=== PATIENT | female | born 1940 | race Caucasian/White ===

== ENCOUNTER 2018-04-03 10:00 | Observation (INO) ==
--- NOTE | 2018-04-03 10:07 | Emergency Department Note ---
Disposition Clinical Impression: Atrial fibrillation Qualifiers: Atrial fibrillation type: unspecified Qualified Code(s): I48.91 - Unspecified atrial fibrillation Disposition: Admitted As Inpatient Condition: Good Referrals: Nahed Berman CNP [Primary Care Provider] - Time of Disposition: 13:20 Chest Pain HPI - General Chief Complaint: ED Chest Pain Stated Complaint: chest pain Time Seen by Provider: 04/03/18 10:05 Source: patient, family Mode of arrival: private vehicle Limitations: no limitations Vital Signs Reviewed: Yes Nursing Notes Reviewed: Yes - History of Present Illness HPI Narrative: Patient is a 78-year-old female without a significant PMH resenting today with history of 4-5 months of chest pain worsening over the last 1-2 days. Patient was seen at [facility] ER yesterday and was told that she has atrial fibrillation and was told to take an aspirin and see a plastic press operator. Patient was not able to get an appointment with cardiology until this coming , and her pain is still present and is happening more frequently. Patient states that the pain is located in the left inframammary area, without radiation, feels like someone is punching her in the chest, happens infrequently, lasts for up to 20 seconds, without any exacerbating or relieving factors. Patient denies associated symptoms including nausea, vomiting, diaphoresis, dizziness, lightheadedness, shortness of breath. Patient denies ever having been a smoker, alcohol, or illegal drugs. Patient states that she takes Premarin, Fosamax, naproxen for knee pain. Severity scale (1-10): 1 - Related Data Home Medications Medication Instructions Recorded Confirmed Alendronate Sodium [Fosamax] 1 mg PO 04/02/18 Estrogens, Conjugated [Premarin] 0.45 mg PO DAILY 04/02/18 04/02/18 Naproxen [Naprosyn] 500 mg PO BID 04/02/18 04/02/18 Previous Rx's Medication Instructions Recorded Rivaroxaban [Xarelto] 20 mg PO DAILY #30 tablet 04/02/18 Allergies Allergy/AdvReac Type Severity Reaction Status Date / Time No Known Allergies Allergy Verified 04/03/18 13:31 All systems ED: reviewed and negative except as stated. Review of Systems: As Per HPI Constitutional: Denies: fever, chills Cardiovascular: Reports: chest pain (left sided, non radiating, 4-5 mos). Denies: dyspnea on exertion Respiratory: Denies: cough, wheezes Gastrointestinal: Denies: abdominal pain, nausea, vomiting, diarrhea, constipation Genitourinary: Denies: urgency, dysuria Neurological: Reports: paresthesias (karen feet from "pre-diabetes" a few years ago). Denies: weakness, numbness Chest Pain PMH - Past Medical History Medical history: Reports: no medical history Psychiatric history: Reports: no psych history - Social History Smoking Status: Never smoker Alcohol use: Reports: none Physical Exam - General Limitations: no limitations General appearance: alert, in no apparent distress - Head Head exam: atraumatic, normocephalic - Eye Eye exam: Present: normal appearance, PERRL, EOMI - ENT ENT exam: normal exam, normal oropharynx, mucous membranes moist - Neck Neck exam: Present: normal inspection, full ROM - Chest Chest inspection: Present: normal inspection, symmetric chest wall rise, tenderness - Respiratory Respiratory exam: Present: normal lung sounds bilaterally. Absent: respiratory distress, wheezes - Cardiovascular Cardiovascular exam: Present: tachycardia, irregular rhythm - Expanded Cardiovascular Exam Peripheral pulses: 2+: radial (R), radial (L), posterior tibialis (R), posterior tibialis (L) - Abdominal Exam Abdominal exam: Present: soft, Non-Tender. Absent: tenderness, distention - Expanded Lower Extremity Exam Lower leg exam: Present: swelling (pt states her legs are always this swollen, it is not worse or better than it normally is) - Back Exam Back exam: Present: normal inspection, full ROM - Neurological Exam Neurological exam: Present: alert, oriented X3 - Psychiatric Psychiatric exam: Present: normal affect, normal mood - Skin Skin exam: Present: warm, dry, intact Course Course Narrative: Patient had a negative workup at [facility] yesterday, although she states that her pain has become more frequent and is worse in severity. We will repeat the workup and she will likely need to be admitted for new onset atrial fibrillation. Vital Signs Temperature 97.7 F 04/03/18 10:02 Pulse Rate 90 04/03/18 10:02 Respiratory Rate 16 04/03/18 10:02 Blood Pressure 150/87 04/03/18 10:02 O2 Sat by Pulse Oximetry 95 04/03/18 10:02 Temperature 97.7 F 04/03/18 10:20 Pulse Rate 89 04/03/18 11:38 Respiratory Rate 18 04/03/18 11:38 Blood Pressure 142/59 04/03/18 11:38 O2 Sat by Pulse Oximetry 98 04/03/18 11:38 Oxygen Delivery Oxygen Delivery Room Air Chest Pain - MDM Narrative Medical decision making narrative: Patient CTA was negative for pulmonary embolism, troponin was below detectable value, chest x-ray was negative for acute process, but given the patient's diagnosis of new onset A. fib along with slight ST depressions in precordial leads, patient will need to come in for further cardiac workup. Patient is in agreement with this plan. Patient was given an Opportunity to ask questions and all of her concerns were addressed. Dr. Thomas, Hospitalist, accepts. Pt remained stable with the exception of variable heart rate between 80s-110s while in the department and did not show signs or symptoms of hemodynamic instability. - Medical Records Medical records reviewed: Yes I reviewed the patient's medical records. - Lab Data Lab results reviewed: Yes I reviewed the patient's lab results. Result diagrams: 04/03/18 10:42 04/03/18 10:42 Lab Results 04/03/18 04/03/18 04/03/18 Range/Units 10:42 10:42 10:42 WBC 6.6 (4.3-11.1) K/mcL RBC 4.76 (3.82-4.97) M/mcL Hgb 14.5 (11.5-15.4) g/dL Hct 43.2 (35.3-44.9) % MCV 90.8 (83.0-100.0) fL MCH 30.5 (28.0-33.3) pg MCHC 33.6 (31.6-35.5) g/dL RDW 13.6 (11.5-14.5) % Plt Count 177 (140-400) K/mcL MPV 10.3 (9.4-12.4) fL Immature Gran % 0.5 (0-4) % Seg Neutrophils % 69.2 % Lymphocytes % 20.8 % Monocytes % 8.3 % Eosinophils % 0.6 % Basophils % 0.6 % Neutrophils # 4.6 (1.6-8.9) K/mcL Lymphocytes # 1.4 (0.6-4.6) K/mcL Monocytes # 0.6 (0.0-1.3) K/mcL Eosinophils # 0.0 (0.0-0.6) K/mcL Basophils # 0.0 (0.0-0.2) K/mcL Sodium 143 (136-145) mEq/L Potassium 4.0 (3.5-5.1) mEq/L Chloride 106 (98-107) mEq/L Carbon Dioxide 30 H (23-29) mEq/L BUN 19 (8-23) mg/dL Creatinine 0.74 (0.60-1.20) mg/dL Est GFR ( Amer) > 60 (> 60) Est GFR (Non-Af Amer) > 60 (> 60) BUN/Creatinine Ratio 26 (6-26) Glucose 102 (70-105) mg/dL Calculated Osmolality 298 (280-300) Calcium 9.9 (8.6-10.3) mg/dL Phosphorus 2.8 (2.7-4.5) mg/dL Magnesium 2.1 (1.6-2.6) mg/dL Total Bilirubin 1.1 H (0.3-1.0) mg/dL AST 20 (13-39) Units/L ALT 18 (7-52) Units/L Alkaline Phosphatase 58 (34-104) Units/L Troponin I < 0.03 (< 0.04) ng/mL Serum Total Protein 6.4 (6.4-8.9) g/dL Albumin 3.9 (3.5-5.7) g/dL Globulin 2.5 (2.4-3.5) g/dL Albumin/Globulin Ratio 1.6 (1.1-2.2) TSH 0.469 (0.340-5.600) mcIU/mL - Radiology Data Radiology results reviewed: Yes I reviewed the patient's radiology results. Chest X-Ray 04/03/18 10:27 IMPRESSION: 1. No acute findings in the chest 2. Pulmonary vascular congestion and mild cardiomegaly. D/ / Julio Shepard MD / Julio Shepard MD Interpreting Provider: Julio Shepard MD - EKG Data EKG attestation: Yes I reviewed and interpreted this EKG. EKG results narrative: Rate 101, Rhythm atrial fibrillation, axis normal. QRS 80, QTC 431. Lead II shows 1mm ST depression not present on comparison study from 04/02/18. Heart Score - Score History: Slightly Suspicious EKG: Non Specific repolarisation Disturbance Age: Greater than 65 Risk Factors: 1-2 risk factors Troponin: Less than normal limit HEART Score Total: 4
[2018-04-03 11:02] LABS: Basophils % 0.6 %; Eosinophils % 0.6 %; Hematocrit 43.2 % (35.3-44.9); Hemoglobin 14.5 g/dL (11.5-15.4); Immature Granulocytes % 0.5 % (0-4); Lymphocytes # 1.4 K/mcL (0.6-4.6); Lymphocytes % 20.8 %; Mean Corpuscular HGB Conc 33.6 g/dL (31.6-35.5); Mean Corpuscular Hemoglobin 30.5 pg (28.0-33.3); Mean Corpuscular Volume 90.8 fL (83.0-100.0); Mean Platelet Volume 10.3 fL (9.4-12.4); Monocytes # 0.6 K/mcL (0.0-1.3); Monocytes % 8.3 %; Neutrophils # 4.6 K/mcL (1.6-8.9); Platelet Count 177 K/mcL (140-400); Red Blood Count 4.76 M/mcL (3.82-4.97); Red Cell Distribution Width 13.6 % (11.5-14.5); Segmented Neutrophils % 69.2 %
[2018-04-03] MEDS ORDERED: Isovue-370 500 ML INFUS..BTL IV ONE (11:11)
[2018-04-03 11:13] LABS: Alanine Aminotransferase 18 Units/L (7-52); Albumin 3.9 g/dL (3.5-5.7); Albumin/Globulin Ratio 1.6 (1.1-2.2); Alkaline Phosphatase 58 Units/L (34-104); Aspartate Amino Transferase 20 Units/L (13-39); BUN/Creatinine Ratio 26 (6-26); Bilirubin,Total 1.1 mg/dL (0.3-1.0); Blood Urea Nitrogen 19 mg/dL (8-23); Calcium 9.9 mg/dL (8.6-10.3); Carbon Dioxide 30 mEq/L (23-29); Chloride 106 mEq/L (98-107); Globulin 2.5 g/dL (2.4-3.5); Glucose 102 mg/dL (70-105); Osmolality,Calculated 298 (280-300); Sodium 143 mEq/L (136-145); Total Protein 6.4 g/dL (6.4-8.9); eGFR For Non-African Americans > 60 (> 60)
[2018-04-03 11:15] LABS: Magnesium 2.1 mg/dL (1.6-2.6); Phosphorous 2.8 mg/dL (2.7-4.5)
[2018-04-03] MEDS ORDERED: Aspirin 325 MG TABLET PO ONE (11:15)
[2018-04-03 11:16] LABS: Troponin I < 0.03 ng/mL (< 0.04)
--- NOTE | 2018-04-03 11:16 | Emergency Department Note ---
Disposition Clinical Impression: Atrial fibrillation Disposition: Admitted As Inpatient Condition: Good General Adult HPI - General Chief complaint: ED Chest Pain Stated complaint: chest pain Time Seen by Provider: 04/03/18 10:05 Source: patient, family Mode of arrival: private vehicle Limitations: no limitations - History of Present Illness Pain Scale: 1 - Related Data Home Medications Medication Instructions Recorded Confirmed Alendronate Sodium [Fosamax] 1 mg PO 04/02/18 Estrogens, Conjugated [Premarin] 0.45 mg PO DAILY 04/02/18 04/02/18 Naproxen [Naprosyn] 500 mg PO BID 04/02/18 04/02/18 Previous Rx's Medication Instructions Recorded Rivaroxaban [Xarelto] 20 mg PO DAILY #30 tablet 04/02/18 Allergies Allergy/AdvReac Type Severity Reaction Status Date / Time No Known Allergies Allergy Verified 04/02/18 10:06 Constitutional: Denies: fever, chills Cardiovascular: Reports: chest pain (left sided, non radiating, 4-5 mos). Denies: dyspnea on exertion Respiratory: Denies: cough, wheezes Gastrointestinal: Denies: abdominal pain, nausea, vomiting, diarrhea, constipation Genitourinary: Denies: urgency, dysuria Neurological: Reports: paresthesias (karen feet from "pre-diabetes" a few years ago). Denies: weakness, numbness Past Medical History - Past Medical History Medical history: Reports: no medical history Psychiatric history: Reports: no psych history - Social History Smoking Status: Never smoker Smokeless Tobacco Status: No Alcohol use: Reports: none Drug use: Reports: none Physical Exam - General Limitations: no limitations General appearance: alert, in no apparent distress Course Vital Signs Temperature 97.7 F 04/03/18 10:02 Pulse Rate 90 04/03/18 10:02 Respiratory Rate 16 04/03/18 10:02 Blood Pressure 150/87 04/03/18 10:02 O2 Sat by Pulse Oximetry 95 04/03/18 10:02 Temperature 97.7 F 04/03/18 10:20 Pulse Rate 89 04/03/18 11:38 Respiratory Rate 18 04/03/18 11:38 Blood Pressure 142/59 04/03/18 11:38 O2 Sat by Pulse Oximetry 98 04/03/18 11:38 Oxygen Delivery Oxygen Delivery Room Air Medical Decision Making - Lab Data Result diagrams: 04/03/18 10:42 04/03/18 10:42 Lab Results 04/03/18 04/03/18 04/03/18 Range/Units 10:42 10:42 10:42 WBC 6.6 (4.3-11.1) K/mcL RBC 4.76 (3.82-4.97) M/mcL Hgb 14.5 (11.5-15.4) g/dL Hct 43.2 (35.3-44.9) % MCV 90.8 (83.0-100.0) fL MCH 30.5 (28.0-33.3) pg MCHC 33.6 (31.6-35.5) g/dL RDW 13.6 (11.5-14.5) % Plt Count 177 (140-400) K/mcL MPV 10.3 (9.4-12.4) fL Immature Gran % 0.5 (0-4) % Seg Neutrophils % 69.2 % Lymphocytes % 20.8 % Monocytes % 8.3 % Eosinophils % 0.6 % Basophils % 0.6 % Neutrophils # 4.6 (1.6-8.9) K/mcL Lymphocytes # 1.4 (0.6-4.6) K/mcL Monocytes # 0.6 (0.0-1.3) K/mcL Eosinophils # 0.0 (0.0-0.6) K/mcL Basophils # 0.0 (0.0-0.2) K/mcL Sodium 143 (136-145) mEq/L Potassium 4.0 (3.5-5.1) mEq/L Chloride 106 (98-107) mEq/L Carbon Dioxide 30 H (23-29) mEq/L BUN 19 (8-23) mg/dL Creatinine 0.74 (0.60-1.20) mg/dL Est GFR ( Amer) > 60 (> 60) Est GFR (Non-Af Amer) > 60 (> 60) BUN/Creatinine Ratio 26 (6-26) Glucose 102 (70-105) mg/dL Calculated Osmolality 298 (280-300) Calcium 9.9 (8.6-10.3) mg/dL Phosphorus 2.8 (2.7-4.5) mg/dL Magnesium 2.1 (1.6-2.6) mg/dL Total Bilirubin 1.1 H (0.3-1.0) mg/dL AST 20 (13-39) Units/L ALT 18 (7-52) Units/L Alkaline Phosphatase 58 (34-104) Units/L Troponin I < 0.03 (< 0.04) ng/mL Serum Total Protein 6.4 (6.4-8.9) g/dL Albumin 3.9 (3.5-5.7) g/dL Globulin 2.5 (2.4-3.5) g/dL Albumin/Globulin Ratio 1.6 (1.1-2.2) TSH 0.469 (0.340-5.600) mcIU/mL Attestation Statement - Attestation Attestation: I examined this patient and my medical decision-making was reviewed with the Resident Physician. I agree with the documented findings, disposition and treatment plan as described except to the extent set forth below. Patient to the emergency department complaining of chest pain. Patient has been having pain in the left lower anterior chest. It worsened over the past couple of days. She has had several episodes of it. She was evaluated at [place] yesterday and found to be in new onset A. fib. She was discharged home with follow-up with cardiology on . She was instructed to take a daily aspirin. She states she got increasing pain last night. She is concerned because her blood cardiology is so far out. Patient describes this pain as sharp and worsening to the touch. Denies rash. Denies fever. Denies cough. Denies any cardiac history. On examination she is very pleasant and well- appearing. Sitting up in bed. Inspection of the area does not reveal any swelling, ecchymosis, or rash. Her lungs are clear. Heart is tachycardia and irregularly irregular. Plan. Patient with new onset A. fib. Because of this pain. We will repeat her cardiac workup. We will check a CTA of her chest. Patient will be admitted. Chest X-Ray 04/03/18 10:27 IMPRESSION: 1. No acute findings in the chest 2. Pulmonary vascular congestion and mild cardiomegaly. D/ / Julio Shepard MD / Julio Shepard MD Interpreting Provider: Julio Shepard MD Chest CTA 04/03/18 11:11 IMPRESSION: Negative CTA for pulmonary embolus. Heterogeneous thyroid gland with a 2.1 cm x 1.5 cm right-sided thyroid mass with a coarse calcification for which nonemergent thyroid ultrasound is recommended. RECOMMENDATIONS: Managing Incidental Thyroid Nodule Detected at CT or MRI or US 1. Further evaluation by thyroid Ultrasound recommended for these incidental nodules: Patient Age 35 years or more - Nodule 1.5 cm in size or greater 2. Follow up thyroid ultrasound also recommend in these scenarios - Solitary nodule with high risk imaging features (locally invasive nodule or suspicious lymph nodes) - Heterogeneous, enlarged thyroid gland. - Increased uptake on PET 3. NO further imaging is recommended in the following scenarios - Any nodule not meeting above criteria. - Those patients with limited life expectancy or significant Co-morbidities. Note: These recommendations do not apply to pts. w/ increased risk for thyroid cancer or pts. with symptomatic thyroid disease. Recommendations for f/u of Incidental Thyroid Nodules (ITN) found on CT, MR, NM and Extrathyroidal US are based upon the ACR white paper and [place] 3-tiered system for managing ITNs: J Am Andrzej Radiol. 2014;12(2): 143-50 D/ / 04/03/2018 13:02:40 Valerio Pacheco MD / rickey Interpreting Provider: Valerio Pacheco MD Heart Score - Score History: Moderately Suspicious EKG: Non Specific repolarisation Disturbance Age: Greater than 65 Risk Factors: No risk factors known Troponin: Less than normal limit HEART Score Total: 4
[2018-04-03 11:29] LABS: Thyroid Stimulating Hormone 0.469 mcIU/mL (0.340-5.600)
[2018-04-03] MEDS ORDERED: Naloxone 0.4 MG/ML INJ IVP PRN (12:50)
[2018-04-03] MEDS ORDERED: *HR* Heparin 5,000 UNIT/ML VIAL IVP PRN ×2 (13:09)
[2018-04-03] MEDS ORDERED: *HR* Heparin 5,000 UNIT/ML VIAL IVP ONE (13:09)
[2018-04-03] MEDS ORDERED: Acetaminophen 325 MG TABLET PO PRN (13:12)
[2018-04-03] MEDS ORDERED: Heparin 25,000 UNIT/500 ML D5W 25,000 UNIT/500 ML BAG IVC SCH (13:15)
--- NOTE | 2018-04-03 13:29 | Internal Med History&Physical ---
Date of Encounter: 04/03/18 Time of Encounter: 13:22 Internal Medicine - H&P: HPI Chief complaint: chest pain Admitted From: Home Plans for Post Hospital Care: Home History of present illness: Ms. Arita is a 78 year old female with history of multinodular goiter not on medications presented to the Ed with complaint of chest discomfort. as per patient she has had 5 months of on/off chest discomfort that lasts anywhere from a few seconds to a 20 minutes. her last episode was the day before admission. she followed at an urgent care center and was found to have atrial fibrillation. she was told to go to the nearest ED. she went to [facility] and was told that she has Atrial fibrillation and was discharged with ASA. as per home medication reconciliation on her EMR she was prescribed Xarelto. she does not know about t he prescription for xarelto and never filled it. At [facility] she was also provided with a cardiology appointment for of this coming week ( 5 days from now). On the morning of admission she developed the chest discomfort again which she describes as a squeezing "weird" feeling in her chest that is 3/10 on severity and non-radiating. her pain is not associated with SOB, diaphoresis or neck pain. she cannot associate aggravating or alleviating factors. she is a very active individual, denies history of heart disease or high blood pressure. she denies fever, chills, N, v,D, SOB, cough, heat or cold intolerance. she has history of mult inodular goiter that she follow as OP with Arturo Juarez MD and was told that she does not need to be on thyroid medicat ions. Past Med Surg Social Fam HX - Past Medical History Medical history: no medical history Psychiatric history: no psych history - Past Surgical History Surgical History: other (right knee surgery ) - Social History Smoking Status: Never smoker Smokeless Tobacco Status: No Alcohol use: none Drug use: none Internal Medicine - H&P: Meds Alendronate Sodium [Fosamax] 1 mg PO 04/02/18 [History] Estrogens, Conjugated [Premarin] 0.45 mg PO DAILY 04/02/18 [History] Naproxen [Naprosyn] 500 mg PO BID 04/02/18 [History] Rivaroxaban [Xarelto] 20 mg PO DAILY #30 tablet 10/19/18 [Rx] Allergy/AdvReac Type Severity Reaction Status Date / Time No Known Allergies Allergy Verified 04/02/18 10:06 All Systems PM: review of systems was performed and is negative for pertinent findings except as documented above in the HPI. - Constitutional Vitals: Temp Pulse Resp BP Pulse Ox 97.7 F 89 18 142/59 98 04/03/18 10:20 04/03/18 11:38 04/03/18 11:38 04/03/18 11:38 04/03/18 11:38 Exam: General: Patient is alert, oriented, no acute distress, Head: atraumatic, normocephalic, Eye: normal appearance, PERRL, no scleral icterus, no conjunctival injection ENT: mucous membranes moist, normal external ear exam Neck: normal inspection, trachea midline, full ROM, no carotid bruits Chest: normal inspection, symmetric chest rise Respiratory: Good respiratory effort. Bilateral breath sounds are clear without wheezing, crackles, or rhonchi. Cardiovascular: irregularly irregular . s1 and s2 No clicks, rubs, gallops, or murmors. Abdomen: Bowel sounds present normoactive x-4 quadrants. Abdomen is soft, nondistended. no Epigastric tenderness. No guarding or rebound. No org anomegaly noted, musculoskeletal: Spontaneously moving all extremities. no edema, no calf tenderness Skin: warm, dry, intact. Neuro: Alert and oriented x4. Sensation light touch intact. Cranial nerves 2- 12 is intact. Not aphasic, gait is steady, rapid hand movements intact, [id number] intact, Psych: Patient's affect is normal Internal Med - H&P Results - Labs CBC & Chem 7: 04/03/18 10:42 04/03/18 10:42 Labs: Short CBC 04/03/18 Range/Units 10:42 WBC 6.6 (4.3-11.1) K/mcL Hgb 14.5 (11.5-15.4) g/dL Hct 43.2 (35.3-44.9) % Plt Count 177 (140-400) K/mcL Neutrophils # 4.6 (1.6-8.9) K/mcL BMP 04/03/18 10:42 Sodium 143 Potassium 4.0 Chloride 106 Carbon Dioxide 30 H BUN 19 Creatinine 0.74 Glucose 102 Calcium 9.9 Cardiac Enzymes 04/03/18 Range/Units 10:42 Troponin I < 0.03 (< 0.04) ng/mL Liver Function 04/03/18 Range/Units 10:42 Total Bilirubin 1.1 H (0.3-1.0) mg/dL AST 20 (13-39) Units/L ALT 18 (7-52) Units/L Alkaline Phosphatase 58 (34-104) Units/L Albumin 3.9 (3.5-5.7) g/dL - Impressions ITS Impressions Chest X-Ray 04/03/18 10:27 IMPRESSION: 1. No acute findings in the chest 2. Pulmonary vascular congestion and mild cardiomegaly. D/ / Julio Shepard MD / Julio Shepard MD Interpreting Provider: Julio Shepard MD Chest CTA 04/03/18 11:11 IMPRESSION: Negative CTA for pulmonary embolus. Heterogeneous thyroid gland with a 2.1 cm x 1.5 cm right-sided thyroid mass with a coarse calcification for which nonemergent thyroid ultrasound is recommended. RECOMMENDATIONS: Managing Incidental Thyroid Nodule Detected at CT or MRI or US 1. Further evaluation by thyroid Ultrasound recommended for these incidental nodules: Patient Age 35 years or more - Nodule 1.5 cm in size or greater 2. Follow up thyroid ultrasound also recommend in these scenarios - Solitary nodule with high risk imaging features (locally invasive nodule or suspicious lymph nodes) - Heterogeneous, enlarged thyroid gland. - Increased uptake on PET 3. NO further imaging is recommended in the following scenarios - Any nodule not meeting above criteria. - Those patients with limited life expectancy or significant Co-morbidities. Note: These recommendations do not apply to pts. w/ increased risk for thyroid cancer or pts. with symptomatic thyroid disease. Recommendations for f/u of Incidental Thyroid Nodules (ITN) found on CT, MR, NM and Extrathyroidal US are based upon the ACR white paper and [place] 3-tiered system for managing ITNs: J Am Andrzej Radiol. 2015 Jul;12(2): 143-50 D/ / 04/03/2018 13:02:40 Valerio Pacheco MD / rickey Interpreting Provider: Valerio Pacheco MD - Assessment and plan (1) First detected episode of atrial fibrillation Current Visit: Yes Status: Acute Assessment and plan: Chads Vasc score of 3 TSH WNL admission EKG stat 1st troponin negative will follow second troponin in 6 hours CTPA performed in the ED and PE was ruled out cardiac monitoring metoprolol 12.5 mg BID heparin drip for now until TTE is done TTE stat I discussed NOACs with patient and she is interested however she understands that TTE needs to be performed to rule out vavular Afib cardiology consulted (2) Multinodular goiter Current Visit: Yes Status: Acute Assessment and plan: TSH WNL CTPA done in the ED showed Heterogeneous thyroid gland with a 2.1 cm x 1.5 cm right-sided thyroid mass with a coarse calcification for which nonemergent thyroid ultrasound is recommended. last thyroid US on 06/2017- showed : Multiple thyroid nodules are present bilat erally. Dominant nodule in the right thyroid lobe measures 3.3 x 2.5 x 2.1 cm. This demonstrates thyroid calcifications on central color Doppler flow as well as central cystic spaces. Previously, this measured 3.3 x 2.5 x 2 cm. In the left mid thyroid lobe, there is solid isoechoic nodule with color Doppler flow measuring 1.3 x 1.2 x 0.9 cm. This is unchanged from prior study. In the inferior left thyroid lobe, there is heterogeneous hypoechoic nodule measuring 1.8 x 1.1 x 1.1 cm. This demonstrates color Doppler flow internally and some microcalcifications. Previously, this measured 1.5 x 1 x 0.9 cm. In the isthmus, the dominant nodule measures 1.4 x 0.9 x 0.7 cm, previously 1.4 x 0.9 x 0.6 cm. This demonstrates central microcalcifications on color Doppler flow. continue follow up as OP (3) DVT prophylaxis Current Visit: Yes Status: Acute Assessment and plan: heparin drip - Time Spent With Patient Total time spent is greater than 50% in coordination of care (as documented) at patient's floor/unit and/or counseling patient:
[2018-04-03 16:07] LABS: INR 1.3; Prothrombin Time 14.9 Seconds (9.4-12.1)
[2018-04-03 16:22] LABS: Activated Partial Thrombo Time > 360.0 Seconds (26.0-36.0)
[2018-04-03 16:32] LABS: Heparin anti-factor XA UFH 1.08 IU/mL (0.30-0.70)
[2018-04-03 20:19] LABS: Bilirubin,Urine Negative (Negative); Blood,Urine Negative (Negative); Clarity,Urine Clear (Clear); Color,Urine Yellow (Yellow); Glucose,Urine (UA) Normal (Normal); Ketones,Urine Negative (Negative); Leukocyte Esterase,Urine Negative (Negative); Nitrite,Urine Negative (Negative); Protein,Urine Negative (Neg-Trace); Specific Gravity,Urine > 1.030 (1.010-1.025); Urobilinogen,Urine Normal (Normal)
[2018-04-04 01:31] LABS: Basophils # 0.1 K/mcL (0.0-0.2); Basophils % 0.8 %; Eosinophils # 0.2 K/mcL (0.0-0.6); Eosinophils % 2.6 %; Hematocrit 38.1 % (35.3-44.9); Immature Granulocytes % 0.2 % (0-4); Lymphocytes # 2.3 K/mcL (0.6-4.6); Lymphocytes % 35.3 %; Mean Corpuscular HGB Conc 33.6 g/dL (31.6-35.5); Mean Corpuscular Hemoglobin 30.2 pg (28.0-33.3); Mean Corpuscular Volume 89.9 fL (83.0-100.0); Mean Platelet Volume 10.4 fL (9.4-12.4); Monocytes # 0.7 K/mcL (0.0-1.3); Monocytes % 9.9 %; Neutrophils # 3.4 K/mcL (1.6-8.9); Platelet Count 156 K/mcL (140-400); Red Blood Count 4.24 M/mcL (3.82-4.97); Red Cell Distribution Width 13.8 % (11.5-14.5); Segmented Neutrophils % 51.2 %
[2018-04-04 01:32] LABS: Hemoglobin 12.8 g/dL (11.5-15.4)
[2018-04-04 01:48] LABS: BUN/Creatinine Ratio 25 (6-26); Blood Urea Nitrogen 16 mg/dL (8-23); Calcium 9.1 mg/dL (8.6-10.3); Carbon Dioxide 29 mEq/L (23-29); Chloride 107 mEq/L (98-107); Chol/HDL Ratio 2.4 (0-4.9); Cholesterol 149 mg/dL (< 200); Glucose 113 mg/dL (70-105); HDL Cholesterol 61 mg/dL (40-59); LDL Cholesterol,Calculated 80 mg/dL (0-99); Osmolality,Calculated 294 (280-300); Potassium 3.9 mEq/L (3.5-5.1); Sodium 141 mEq/L (136-145); Triglycerides 41 mg/dL (< 150); eGFR For Non-African Americans > 60 (> 60)
--- NOTE | 2018-04-04 10:46 | Cardiology Consult Note ---
<Nina Rodriguez - Last Filed: 04/04/18 10:43> Date of Encounter: 04/04/18 Time of Encounter: 08:30 Assessment and Plan (1) First detected episode of atrial fibrillation Current Visit: Yes Status: Acute Per cardiology: -Reports symptoms for the previous 5 months, however newly diagnosed a.fib. -Started on BB, HR controlled. -Sdcae1ydku score 3 (age, HTN). On heparin drip currently. Recommend long term care pharmacist anticoagulation. -TTE pending. -Mg, K, TSH within normal limits. -If no significant valvular dysfunction, recommend starting xarelto 20mg daily. -Continue BB. -Consider outpatient stress, sleep study. (2) Chest discomfort Current Visit: No Status: Acute Per cardiology: -Reports chest discomfort, non-exertional. -Chest pain reproduceable with palpation. -Troponin negative. -ECG with no acute ischemic changes. -TTE pending. -Chest pain atypical. Discussion w patient/family: The assessment and plan as outlined above was discussed with the patient who expressed understanding and agreement. All questions were answered. Thank you for involving us in the care of your patient. Please call with any questions. Discussed and reviewed with Dr.John Gonzalez. History of Present Illness Consult date: 04/03/18 Requesting physician: Qiana Berman Consult reason: new a.fib Chief complaint: "funny feeling in chest" History of present illness: Ms. Arita is a 78 year old female with a relevant past medical history of hyperthyroidism, migraines who presented to [facility] with complaints of "funny feeling in chest." Patient reports has been having symptoms off and on for the past 5 months. States they last for a few seconds up to 20 seconds. Patient states have been ocurring more frequently. Pateint repors recent ER visit to [facility] and diagnosed with a.fib. Patient also reports chest pain with palpation to chest. Denies exertional symptoms. Denies shortness of breath. Past Med Surg Social Fam HX - Past Medical History Attestation: Yes The following information was validated with the patient. Source: patient, old records reviewed Medical history: thyroid disease Psychiatric history: no psych history - Past Surgical History Surgical History: other - Social History Smoking Status: Never smoker Smokeless Tobacco Status: No Alcohol use: none Drug use: none - Family History Mother Living Status: Father Living Status: Medications and Allergies Alendronate Sodium [Fosamax] 1 mg PO SA 04/02/18 [History] Estrogens, Conjugated [Premarin] 0.45 mg PO DAILY 04/02/18 [History] Acetaminophen [Tylenol] 650 mg PO Q6HR PRN #120 tablet 04/04/18 [Rx] Aspirin 81 mg PO DAILY #30 tab.chew 04/04/18 [Rx] Metoprolol [Lopressor] 12.5 mg PO BID #60 tablet 04/04/18 [Rx] Allergy/AdvReac Type Severity Reaction Status Date / Time No Known Allergies Allergy Verified 04/03/18 13:31 All Systems Review: The remainder of the systems were reviewed and are negative - Cardiovascular Cardiovascular: as per HPI, chest pain at rest, palpitations Physical Examination Vital Signs, Last 4 Hours Temp Pulse Resp BP Pulse Ox 04/04/18 07:34 97.6 F 72 18 121/69 95 General: Conversant, No Apparent Distress HEENT: Atraumatic, Normocephaly, Mucus Membranes Moist Neck: No JVD, Normal carotid pulses Cardiac: Normal S1 and S2, No Murmur, Other (Irregularly irregular ) Lungs: Normal Breath Sounds, No Wheeze, Rales, Rhonchi Neuro: Alert and responsive, No focal deficits noted Abdomen: Soft, Non-Tender Skin: No rashes noted on visualized skin Musculoskeletal: Other (Chest pain reproduceable with palpation. ) Extremities: No Clubbing, No Cyanosis, No Edema, Normal Pulses Results 04/04/18 01:18 04/04/18 01:18 Lab Results Impressions Chest X-Ray 04/03/18 10:27 IMPRESSION: 1. No acute findings in the chest 2. Pulmonary vascular congestion and mild cardiomegaly. D/ / Julio Shepard MD / Julio Shepard MD Interpreting Provider: Julio Shepard MD Chest CTA 04/03/18 11:11 IMPRESSION: Negative CTA for pulmonary embolus. Heterogeneous thyroid gland with a 2.1 cm x 1.5 cm right-sided thyroid mass with a coarse calcification for which nonemergent thyroid ultrasound is recommended. RECOMMENDATIONS: Managing Incidental Thyroid Nodule Detected at CT or MRI or US 1. Further evaluation by thyroid Ultrasound recommended for these incidental nodules: Patient Age 35 years or more - Nodule 1.5 cm in size or greater 2. Follow up thyroid ultrasound also recommend in these scenarios - Solitary nodule with high risk imaging features (locally invasive nodule or suspicious lymph nodes) - Heterogeneous, enlarged thyroid gland. - Increased uptake on PET 3. NO further imaging is recommended in the following scenarios - Any nodule not meeting above criteria. - Those patients with limited life expectancy or significant Co-morbidities. Note: These recommendations do not apply to pts. w/ increased risk for thyroid cancer or pts. with symptomatic thyroid disease. Recommendations for f/u of Incidental Thyroid Nodules (ITN) found on CT, MR, NM and Extrathyroidal US are based upon the ACR white paper and [place] 3-tiered system for managing ITNs: J Am Andrzej Radiol. 2015 Jul;12(2): 143-50 D/ : / 04/03/2018 13:02:40 Valerio Pacheco MD / rickey Interpreting Provider: Valerio Pacheco MD Active Medications Acetaminophen (Tylenol) 650 mg PO Q6HR PRN PRN Reason: Pain Stop: 10/03/18 13:13 Heparin Sodium (Porcine) (Heparin) 4,700 unit 70 unit/kg (4700 unit) IVP Q6HR PRN PRN Reason: SEE COMMENTS Stop: 10/03/18 13:10 Heparin Sodium (Porcine) (Heparin) 2,300 unit 35 unit/kg (2300 unit) IVP Q6H PRN PRN Reason: SEE COMMENTS Stop: 10/03/18 13:10 Heparin Sodium/Dextrose (Heparin 25,000 Unit/500 Ml D5w) 25,000 unit in 500 mls @ 18.67 mls/hr IVC .Q24H KANE; Protocol Stop: 10/03/18 13:16 Last Titration: 04/04/18 08:33 Dose: 12 unit/kg/hr, 16.003 mls/hr Metoprolol Tartrate (Lopressor) 12.5 mg PO BID KANE Stop: 10/03/18 21:01 Last Admin: 04/04/18 08:38 Dose: 12.5 mg Naloxone HCl (Narcan) 0.4 mg IVP Q2MIN PRN PRN Reason: SEE COMMENTS Stop: 10/03/18 12:51 Laboratory Tests 04/03/18 04/04/18 04/04/18 10:42 01:18 01:18 Hgb 12.8 D Potassium 3.9 Creatinine 0.64 Magnesium 2.1 TSH 0.469 - Imaging and Cardiology Chest Xray: report reviewed Echo: pending - EKG Interpretation EKG results cardiology: personally reviewed (ECG with a.fib, HR 101.), other (Telemetry reviewed with average HR previous 12 hours noted to be 74, a.fib. PVC s noted.) Consult Discharge Plan - Plan Referrals: Nahed Berman CNP [Primary Care Provider] - Mason Mcdonough MD [Partnered Physician] - Arturo Gonzalez MD [Partnered Physician] - Prescriptions: Acetaminophen [Tylenol] 650 mg PO Q6HR PRN #120 tablet PRN Reason: Pain Aspirin 81 mg PO DAILY #30 tab.chew Metoprolol [Lopressor] 12.5 mg PO BID #60 tablet <Arturo Gonzalez - Last Filed: 04/04/18 12:08> - Attending Attestation I have personally performed a face to face evaluation on this patient. I have reviewed and agree with the care plan. History and Exam by me shows: AF of unkown duration. Would rate control and anticoagulate. More definitive AF treatment as outpt. Assessment and Plan Discussion w patient/family: The assessment and plan as outlined above was discussed with the patient and/or family members who expressed understanding and agreement. All questions were answered. Thank you for involving us in the care of your patient. Please call with any questions. History of Present Illness History of present illness: Ms. Arita is a 78 year old female All Systems Review: The remainder of the systems were reviewed and are negative Physical Examination Vital Signs, Last 4 Hours Temp Pulse Resp BP Pulse Ox 04/04/18 11:50 97.6 F 76 17 113/70 94 Results 04/04/18 01:18 04/04/18 01:18 Lab Results 04/03/18 04/03/18 04/03/18 14:34 14:34 15:38 WBC Hgb Hct Plt Count INR TNP APTT TNP Sodium Potassium Chloride Carbon Dioxide BUN Creatinine Glucose Calcium Troponin I < 0.03 B-Natriuretic Peptide 261 H 04/03/18 04/04/18 04/04/18 15:38 01:18 01:18 WBC 6.6 Hgb 12.8 D Hct 38.1 Plt Count 156 INR 1.3 APTT > 360.0 H* D Sodium 141 Potassium 3.9 Chloride 107 Carbon Dioxide 29 BUN 16 Creatinine 0.64 Glucose 113 H Calcium 9.1 Troponin I B-Natriuretic Peptide
--- NOTE | 2018-04-04 11:18 | Discharge Summary ---
- NOTES TO OUTPATIENT PROVIDER Notes to Outpatient Provider: follow up with cardiology for out patient stress test. follow up with pulmonology for sleep study. follow up with Dr. Arturo Juarez MD for thyroid functions and management of goiter Orders not resulted at time of discharge: Pending orders 04/03/18 10:07 ECG 12 lead ECG [ECG] Stat 04/03/18 20:08 Urinalysis reflex Microscopic [URIN] Stat Date of Encounter: 04/04/18 Time of Encounter: 11:15 - Discharge Diagnosis (1) First detected episode of atrial fibrillation Priority: Primary Status: Acute (2) Multinodular goiter Priority: Secondary Status: Acute (3) DVT prophylaxis Priority: Secondary Status: Acute Hospital course: Ms. Arita is a 78 year old female with history of multinodular goiter not on medications presented to the Ed with complaint of chest discomfort. as per patient she has had 5 months of on/off chest discomfort that lasts anywhere from a few seconds to a 20 minutes. her last episode was the day before admission. she followed at an urgent care center and was found to have atrial fibrillation. she was told to go to the nearest ED. she went to [facility] and was told that she has Atrial fibrillation and was discharged with ASA. as per home medication reconciliation on her EMR she was prescribed Xarelto. she does not know about the prescription for xarelto and never filled it. At [facility] ED she was also provided with a cardiology appointment for of this coming week ( 5 days from now). On the morning of admission she developed the chest discomfort again which she describes as a squeezing "weird" feeling in her chest that is 3/10 on severity and non-radiating. her pain is not associated with SOB, diaphoresis or neck pain. she cannot associate aggravating or alleviating factors. she is a very active individual, denies history of heart disease or high blood pressure. she denies fever, chills, N, v,D, SOB, cough, heat or cold intolerance. she has history of mult inodular goiter that she follow as OP with Arturo Juarez MD and was told that she does not need to be on thyroid medications. CTPA performed in [facility] ED was negative for PE. she was admitted for above presentation. Chads vasc was 3 so she was started on heparin drip. TTE was ordered ( full report below). she was started on BB with rate control and xarelto. magnesium, Po4 and K were wnL. TSH followed and WNL. troponins were negative x2 and ECG with no acute ischemic changes. started on ASA. chest discomfort was reproducible. cardiology was consulted and recommendations followed. she is to follow up with cardiology as OP for stress test. to follow up with pulmonology for sleep study as OP. follow up with Arturo Juarez MD for thyroid functions and multinodular goiter. CTPA= IMPRESSION: Negative CTA for pulmonary embolus. Heterogeneous thyroid gland with a 2.1 cm x 1.5 cm right-sided thyroid mass with a coarse calcification for which nonemergent thyroid ultrasound is recommended. CXR: IMPRESSION: 1. No acute findings in the chest 2. Pulmonary vascular congestion and mild cardiomegaly. TTE: Impressions: Atrial fibrillation. LVEF 60%. Indeterminate diastolic function. Normal right ventricular structure and function. Bi-atrial enlargement. Mild-moderate aortic regurgitation. Moderate mitral regurgitation. Moderate tricuspid regurgitation. Mild pulmonic regurgitation. No pulmonary hypertension based on TR signal obtained, possibly Discharge discussed with: patient, family, nurse, customer care consultant - Time Spent with Patient Total time spent providing and/or coordinating discharge services: Less than 30 minutes - Discharge Medications Prescriptions: Acetaminophen [Tylenol] 650 mg PO Q6HR PRN #120 tablet PRN Reason: Pain Aspirin 81 mg PO DAILY #30 tab.chew Metoprolol [Lopressor] 12.5 mg PO BID #60 tablet Rivaroxaban [Xarelto] 20 mg PO DAILY #30 tablet Home Medications: Alendronate Sodium [Fosamax] 1 mg PO SA 04/02/18 [History] Estrogens, Conjugated [Premarin] 0.45 mg PO DAILY 04/02/18 [History] Acetaminophen [Tylenol] 650 mg PO Q6HR PRN #120 tablet 04/04/18 [Rx] Aspirin 81 mg PO DAILY #30 tab.chew 04/04/18 [Rx] Metoprolol [Lopressor] 12.5 mg PO BID #60 tablet 04/04/18 [Rx] Rivaroxaban [Xarelto] 20 mg PO DAILY #30 tablet 04/04/18 [Rx] Allergies/Adverse Reactions: Allergy/AdvReac Type Severity Reaction Status Date / Time No Known Allergies Allergy Verified 04/03/18 13:31 Date of admission: 04/03/18 13:06 Primary care physician: Nahed Berman CNP Consults: 04/03/18 13:11 Consult to Cardiology [CONS] Stat Comment: Consulting Provider: Cardiology Lali Reason for Consult: newly diagnosed Afib Call Completed: Yes - Constitutional Vitals: Temp Pulse Resp BP Pulse Ox 97.6 F 72 18 121/69 95 04/04/18 07:34 04/04/18 07:34 04/04/18 07:34 04/04/18 07:34 04/04/18 07:34 Exam: General: Patient is alert, oriented, no acute distress, Head: atraumatic, normocephalic, Eye: normal appearance, PERRL, no scleral icterus, no conjunctival injection ENT: mucous membranes moist, normal external ear exam Neck: normal inspection, trachea midline, full ROM, no carotid bruits Chest: normal inspection, symmetric chest rise Respiratory: Good respiratory effort. Bilateral breath sounds are clear without wheezing, crackles, or rhonchi. Cardiovascular: irregular . s1 and s2 No clicks, rubs, gallops, or murmors. Abdomen: Bowel sounds present normoactive x-4 quadrants. Abdomen is soft, nondistended. no Epigastric tenderness. No guarding or rebound. No organomegaly noted, musculoskeletal: Spontaneously moving all extremities. no edema, no calf tenderness Skin: warm, dry, intact. Neuro: Alert and oriented x4. Sensation light touch intact. Cranial nerves 2- 12 is intact. Not aphasic, gait is steady, rapid hand movements intact, aghike-td-vivu intact, Psych: Patient's affect is normal - Patient Status Disposition: Home, Self-Care Condition: Good Functional capacity at discharge: independent ambulation Overall status at discharge: patient is progressing back to baseline - Discharge Instructions Follow Up With: Nahed Berman CNP [Primary Care Provider] - Mason Mcdonough MD [Partnered Physician] - Arturo Gonzalez MD [Partnered Physician] - - Diet and Activity Activity: increase activity as tolerated Diet: advance to your usual diet
[2018-04-04 11:51] VITALS: BP 113/70
--- NOTE | 2018-04-06 17:11 | Electrocardiograph Report ---
[address] [address] Test Date: 2018-04-03 Pat Name: Sridevi Arita Department: EXAM10 Room: 3B35 Gender: F Housemaid: : 1940 Requested By: Chante Barajas Order Number: [id number] Reading MD: Arturo Gonzalez Measurements Intervals [place] Rate: 101 P: [place]: QRS: 86 QRSD: 80 T: 60 QT: 332 QTc: 431 Interpretive Statements Atrial fibrillation Borderline right axis deviation Minimal ST depression, inferior leads Electronically Signed On 04-06-2018 17:09:46 EDT by Arturo Gonzalez
== END 2018-04-04 15:13 | disposition home or self-care (01) ==
LOC: EMEROOARM 10:00 → 3BNU 10:00
PROVIDERS: ADMIT Internal Medicine; ATTEND Internal Medicine